=== PATIENT | female | born 1940 | race Caucasian/White ===

== ENCOUNTER 2022-08-24 07:30 | Emergency (ER) | payer MEDICARE ==
--- NOTE | 2022-08-24 07:42 | ED Physician Documentation ---
PD HPI LOWER EXT INJURY - Stated complaint Stated Complaint: LFT HIP SWOLLEN/PX - History obtained from History obtained from: Patient, Family - History of Present Illness PD HPI LOW EXT INJURY LOCATION: Left, Hip Type of injury: Fall (she states her legs will give out if she stands too long, due to leg weakness/canal stenosis.) Where injury occurred: Other (daughters house.) Timing - onset: Last night Timing - details: Abrupt onset, Still present (fell last night with soreness of lateral hip. Increased swelling, tenderness, pain overnight. Large firm swelling this morning.) Worsened by: Palpating Associated symptoms: Swelling. No: Weakness, Numbness Contributing factors: No: Anticoagulated Similar symptoms before: Has not had sx before Review of Systems Constitutional: denies: Fever, Chills Skin: denies: Abrasion (s), Laceration (s) Musculoskeletal: denies: Neck pain, Back pain Neurologic: denies: Altered mental status, Headache, Head injury PD PAST MEDICAL HISTORY - Present Medications Home Medications: Ambulatory Orders Medication Instructions Recorded Confirmed Amitriptyline HCl 75 mg PO HS 08/24/22 08/24/22 Atorvastatin [Lipitor] 10 mg PO DAILY 08/24/22 08/24/22 Budesonide/Formoterol Fumarate 2 puffs INH BID 08/24/22 08/24/22 [Symbicort 160-4.5 Mcg Inhaler] - Allergies Allergies/Adverse Reactions: Allergies Allergy/AdvReac Type Severity Reaction Status Date / Time No Known Drug Allergies Allergy Verified 08/24/22 07:43 PD ED PE NORMAL - Vitals Vital signs reviewed: Yes - General General: Alert and oriented X 3, No acute distress, Well developed/nourished - Derm Derm: Normal color, Warm and dry - Extremities Extremities: Other (Left lateral gluteal/buttock area over to the lateral hip around the greater trochanter shows a hand sized area of swelling and firmness and protrusion consistent with a hematoma. It is moderately tender. She does have good range of motion of the hip itself without inguinal pain.) - Neuro Neuro: Alert and oriented X 3, No motor deficit, No sensory deficit, Normal speech Results - Vitals Vitals: Vital Signs - 24 hr 08/24/22 07:39 Temperature 36.2 C L Heart Rate 106 H Respiratory 16 Rate Blood Pressure 142/55 H O2 Saturation 97 Oxygen O2 Source Room air - Labs Labs: Laboratory Tests 08/24/22 08:41 WBC 14.4 H RBC 3.90 L Hgb 11.9 L Hct 36.3 L MCV 93.1 MCH 30.5 MCHC 32.8 RDW 13.9 Plt Count 247 MPV 9.4 Neut # (Auto) 11.9 H Lymph # (Auto) 1.0 L Charlton # (Auto) 1.4 H Eos # (Auto) 0.1 Baso # (Auto) 0.1 Absolute Nucleated RBC 0.00 Nucleated RBC % 0.0 - Rads (name of study) left hip Relevant Findings:: Prelim report reviewed (no fractures), EMP independent interpretation of test (no fractures. Possible small avulsion 1-2 mm versus calcific spurring of the greate trochanter. ), See rad report PD Medical Decision Making - ED course Complexity details: considered differential (She fell onto her lateral gluteal/lateral hip area with overnight development of swelling consistent with hematoma. Her vitals are good. Her hemoglobin is adequate at 11.9. It is locally tender and firm but not tense per se. We discussed the usual treatment for hematomas.), d/w patient, d/w family (daughter) Departure - Departure Disposition: 01 Home, Self Care Clinical Impression: Fall from slip, trip, or stumble, Traumatic hematoma of buttock Condition: Stable Record reviewed to determine appropriate education?: Yes Instructions: ED Hematoma Comments: Your blood count is just minimally anemic with a hemoglobin 11.9 (normal being 12.0 or above). Your x-ray does not show any obvious fractures. There is a minimal spurring of bone over the greater trochanter which may be a chronic osteophyte (spur) or at most represent a small avulsion fracture. This would not be treated as a bony/fracture abnormality. Essentially the treatment is the bruising of the muscle which had bled into this pocket of blood (hematoma.) This will slowly resorb over several weeks. If it does not absorb well over the next couple of weeks, you could follow-up with your primary care to consider surgical evacuation of it though this is infrequently needed. Otherwise cool towels or such to the area today for swelling and then start warm towels or compresses or heating pad to the area to help the hematoma absorb and soften a little faster. Tylenol and/or ibuprofen or naproxen as needed for pains. Activity as tole rated.
[2022-08-24 07:47] VITALS: BP 142/55
--- NOTE | 2022-08-24 08:31 | XRAY Report ---
PROCEDURE: Hip w/Pelvis 2-3V LT INDICATIONS: fall last night; gluteal hematoma TECHNIQUE: AP pelvis with lateral view(s) of the left hip(s). COMPARISON: None. FINDINGS: Bones: No fractures or dislocations. No suspicious bony lesions. Soft tissues: No suspicious soft tissue calcifications or masses. IMPRESSION: No visualized acute fracture or dislocation. However, occult injury cannot be excluded. Recommend kemar rt interval imaging follow-up in 7-10 days as clinically indicated for additional evaluation. Reviewed by: Mary Jo Neal MD on 08/24/2022 8:29 AM PDT Approved by: Mary Jo Neal MD on 08/24/2022 8:29 AM PDT Station ID: [id number]
[2022-08-24 08:48] LABS: BASOPHILS # (AUTO) 0.1 10^3/uL (0.0-0.1); BASOPHILS % (AUTO) 0.6 %; EOSINOPHILS # (AUTO) 0.1 10^3/uL (0.0-0.7); EOSINOPHILS % (AUTO) 0.4 %; HCT - HEMATOCRIT 36.3 % (37.0-47.0); HGB - HEMOGLOBIN 11.9 g/dL (12.0-16.0); LYMPHOCYTES % (AUTO) 6.7 %; MEAN CORPUSCULAR HEMOGLOBIN 30.5 pg (27.0-31.0); MEAN CORPUSCULAR HGB CONC 32.8 g/dL (32.0-36.0); MEAN CORPUSCULAR VOLUME 93.1 fL (81.0-99.0); MEAN PLATELET VOLUME 9.4 fL (7.9-10.8); MONOCYTES # (AUTO) 1.4 10^3/uL (0.0-1.0); MONOCYTES % (AUTO) 9.5 %; NEUTROPHILS # (AUTO) 11.9 10^3/uL (1.5-6.6); NEUTROPHILS % (AUTO) 82.5 %; PLT - PLATELET COUNT 247 10^3/uL (130-450); RED CELL DISTRIBUTION WIDTH 13.9 % (12.0-15.0); WHITE BLOOD COUNT 14.4 x10^3/uL (4.8-10.8)
== END 2022-08-24 09:24 | disposition home or self-care (01) ==
LOC: ED 07:30
DX: S30.0XXA Contusion of lower back and pelvis, initial encounter (principal); W18.30XA Fall on same level, unspecified, initial encounter; Y92.009 Unspecified place in unspecified non-institutional (private) residence as the place of occurrence of the external cause
CPT/HCPCS: 36415; 85025; 99283; 99284